=== PATIENT | female | born 1990 | race Native Hawaiian/Other Pacific Islander ===

== ENCOUNTER 2017-03-24 20:10 | Emergency (ER) | payer OTHER ==
[~2017-03-24] VITALS: Ht 162.6 cm; Wt 64.0 kg
[~2017-03-24 20:10] MED LIST: CELEXA40 MG PO
[2017-03-24 23:23] VITALS: BP 144/79; TEMP 98.3
== END 2017-03-24 23:22 | disposition home or self-care (01) ==
LOC: ED 20:10
DX: K04.7 Periapical abscess without sinus (principal); K02.9 Dental caries, unspecified
CPT/HCPCS: 99281

== ENCOUNTER 2017-08-30 11:45 | Emergency (ER) | payer OTHER ==
[~2017-08-30] VITALS: Ht 162.6 cm; Wt 64.9 kg
[2017-08-30 13:14] LABS: PLATELET COUNT 369 K/uL (152-353)
[2017-08-30 13:20] LABS: SODIUM 134 mmol/L (136-145)
[2017-08-30 13:44] LABS: PARTIAL THROMBOPLASTIN TIME 29.8 SECONDS (24.5-33.6)
[2017-08-30 14:30] VITALS: BP 118/78; TEMP 98
== END 2017-08-30 14:30 | disposition home or self-care (01) ==
LOC: ED 11:45
PROVIDERS: Emergency Medicine
DX: N93.8 Other specified abnormal uterine and vaginal bleeding (principal); N73.0 Acute parametritis and pelvic cellulitis
CPT/HCPCS: 36415; 80053; 80307; 81000; 81025; 85027; 85610; 85651; 85730; 87070; 87077; 87185; 87186; 87590; 96361; 96365; 96375; 99284; G0479; J0696; J2175; J2405; J3490

== ENCOUNTER 2017-09-21 13:35 | Emergency (ER) | payer OTHER ==
[~2017-09-21] VITALS: Ht 162.6 cm; Wt 64.4 kg
[2017-09-21 16:08] VITALS: BP 118/85; TEMP 97.6
[2017-09-21] MEDS ORDERED: GABA300C2 PO (16:10)
[2017-09-21] MEDS ORDERED: CELEXA40 MG PO (16:11)
== END 2017-09-21 16:27 | disposition home or self-care (01) ==
LOC: ED 13:35
DX: R10.2 Pelvic and perineal pain (principal)

== ENCOUNTER 2017-09-21 19:05 | Emergency (ER) | payer OTHER ==
[~2017-09-21] VITALS: Ht 162.6 cm; Wt 64.4 kg
[~2017-09-21 19:05] MED LIST changes: +GABA300C2 PO
[2017-09-21 20:57] LABS: PLATELET COUNT 334 K/uL (152-353)
[2017-09-21 21:14] LABS: POTASSIUM 3.7 mmol/L (3.6-5.2); SODIUM 139 mmol/L (136-145)
[2017-09-21 21:54] VITALS: BP 119/70; TEMP 98.2
== END 2017-09-21 22:00 | disposition home or self-care (01) ==
LOC: ED 19:05
PROVIDERS: Specialist
DX: R10.2 Pelvic and perineal pain (principal)
CPT/HCPCS: 36415; 80048; 81000; 81025; 85027; 87490; 87590; 99283

== ENCOUNTER 2017-10-11 13:43 | Emergency (ER) | payer OTHER ==
[~2017-10-11] VITALS: Ht 162.6 cm; Wt 64.4 kg
[2017-10-11 13:48] VITALS: TEMP 97
[2017-10-11 15:22] LABS: PLATELET COUNT 326 K/uL (152-353)
[2017-10-11 15:34] LABS: POTASSIUM 3.9 mmol/L (3.6-5.2)
[2017-10-11 16:20] VITALS: BP 128/78
== END 2017-10-11 16:21 | disposition home or self-care (01) ==
LOC: ED 13:43
PROVIDERS: Emergency Medicine
DX: R10.2 Pelvic and perineal pain (principal)
CPT/HCPCS: 36415; 80053; 80307; 81000; 81025; 85027; 99283